=== PATIENT | male | born 2000 | race Caucasian/White ===

== ENCOUNTER 2019-05-20 12:19 | Outpatient (CLI) | payer BC, SELFPAY ==
--- NOTE | 2019-05-20 12:47 | MR_ITS ---
WS: [id number] MRI of the lumbar spine, 05/20/2019 Clinical Data: LOW BACK PAIN Comparison: None. Findings: No compression fractures are seen. There is minimal disc degeneration at L4-L5 and L5-S1. The disc he ights are normal. The lower lumbar spinal cord ends posterior to L1. L1-L2: No canal stenosis, disc bulge or foraminal narrowing is seen. L2-L3: No canal stenosis, disc bulge or foraminal narrowing is seen. L3-L4: There is a small bulging disc. Minimal central canal stenosis is present. There is no foramina l stenosis. There is also a small disc fragment which has slipped inferiorly onto the superior oil field roustabout ior aspect of L4. L4-L5: No canal stenosis, disc bulge or foraminal narrowing is seen. L5-S1: No canal stenosis, disc bulge or foraminal narrowing is seen. MR/MR lumbar spine wo con* [id number] Impression: 1. Small bulging disc at L3-L4 with small fragment which has slipped inferiorly onto the posterior superior surface of L4. 2. Minimal disc degeneration at L4-L5 and L5-S1.
== END 2019-05-20 12:20 | disposition home or self-care (01) ==
LOC: RADSHAW 12:26
PROVIDERS: Visit Provider Optometrist
DX: M51.26 Other intervertebral disc displacement, lumbar region (principal); M47.897 Other spondylosis, lumbosacral region; M47.896 Other spondylosis, lumbar region
CPT/HCPCS: 72148

== ENCOUNTER 2021-10-21 07:41 | Outpatient (CLI) | payer BC, SELFPAY ==
--- NOTE | 2021-10-21 08:09 | XRR_ITS ---
PROCEDURE INFORMATION: Exam: XR Abdomen Exam date and time: 10/21/2021 8:17 AM Age: 21 years old Clinical indication: Condition or disease; Kidney or ureter condition; Calculus (stone) in kidney; Patient HX: HX of kidney stones, sciatic nerve pain also; Additional info: Renal calculus, kub @ oz 10/21/21 @ [id number] appointment to follow TECHNIQUE: Imaging protocol: XR of the abdomen. Views: Frontal supine view of the abdomen. 1 View. COMPARISON: CT abdomen pelvis con [id number] 10/16/2021 11:07 AM FINDINGS: Gastrointestinal tract: No abnormally dilated air-filled bowel loops identified. Organs: Punctate areas of increased density overlying the kidneys likely consistent with known nephrolithiasis. No radiographically apparent ureteral stones identified. Bones/joints: Unremarkable. XR/XR KUB [id number] IMPRESSION: 1. Punctate areas of increased density overlying the kidneys likely consistent with known nephrolithiasis. 2. No radiographically apparent ureteral stones identified.
== END 2021-10-21 07:42 | disposition home or self-care (01) ==
PROVIDERS: PCP Nurse Practitioner Family; Visit Provider Urology
DX: N20.0 Calculus of kidney (principal)
CPT/HCPCS: 74018; 81003; 82365; 88300

== ENCOUNTER 2022-04-21 12:23 | Outpatient (CLI) | payer BC, SELFPAY ==
--- NOTE | 2022-04-21 12:34 | XR_ITS ---
WS: [id number] EXAMINATION: XR KUB [id number] REASON FOR EXAM: stones COMPARISON: 10/21/2021 ORDER DATE: 04/21/2022 12:43 PM FINDINGS/IMPRESSION: There is a nonspecific colonic gas pattern with scattered fecal content and gas. There is no sign of significant small bowel dilation. Punctate areas of increased density overlying the right kidney likely consistent with known nephrolithiasis and unchanged from previous. Very dense tiny focus exceeding ca lcium in density probably either artifact or metallic density seen near the transverse process of L3 on the left not seen previously.
== END 2022-04-21 12:24 | disposition home or self-care (01) ==
PROVIDERS: PCP Nurse Practitioner Family; Visit Provider Urology
DX: N20.0 Calculus of kidney (principal)
CPT/HCPCS: 74018; 81003